=== PATIENT | male | born 1990 | race African-American/Black ===

== ENCOUNTER 2017-06-11 11:53 | Emergency (ER) | payer OTHER ==
[~2017-06-11] VITALS: Ht 177.8 cm; Wt 118.2 kg
[~2017-06-11 11:53] MED LIST: DOXYCYCLINE 10100 MG PO; NORVASC 10MG10 MG PO
[2017-06-11 11:57] VITALS: TEMP 97.3
[2017-06-11 12:15] LABS: BASO # 0.1 (0.0-0.2); BASO % 0.6 % (0.0-2.0); EOS # 0.2 (0.0-0.7); EOS % 1.5 % (0-4.0); GRAN # 7.1 (1.4-6.5); GRAN % 70.4 % (42.2-75.2); LYMPH # 2.2 (1.2-3.4); LYMPH % 21.7 % (20.0-51.0); MEAN CORPUSCULAR HGB CONC 30 g/dl (33.0-37.0); MONO # 0.6 (0.1-0.6); MONO % 5.4 % (1.7-9.3); PLATELET COUNT 277 K/mm3 (130-400); WHITE BLOOD COUNT 10.1 K/mm3 (4.8-10.8)
[2017-06-11 12:22] LABS: INR 1.4 (0.8-3.0); PROTHROMBIN TIME 15.8 SECONDS (9.7-12.8)
[2017-06-11 12:23] LABS: ADJUSTED CALCIUM 9.6 mg/dL (8.4-10.2); BILIRUBIN,TOTAL 3.8 mg/dL (0.0-1.0); CALCIUM 9.6 mg/dL (8.4-10.2); CREATININE, serum 1.88 mg/dL (0.66-1.25); TOTAL PROTEIN 7.6 gm/dL (6.4-8.2)
[2017-06-11 12:25] LABS: PARTIAL THROMBOPLASTIN TIME 30.8 SECONDS (26.0-37.0)
[2017-06-11 12:34] LABS: POTASSIUM 2.9 mmol/L (3.4-5.0)
[2017-06-11 12:48] LABS: TROPONIN-I 0.104 ng/mL (0.000-0.034)
[2017-06-11 13:00] LABS: HEMATOCRIT 36.5 % (42.0-52.0); HEMOGLOBIN 11.1 g/dl (13.5-18.0); MEAN CORPUSCULAR HEMOGLOBIN 19 pg (27.0-31.0)
[2017-06-11 13:02] LABS: MEAN CELL VOLUME 62 fl (80.0-100.0)
[2017-06-11 13:03] LABS: RED BLOOD COUNT 5.85 M/mm3 (4.20-5.60)
[2017-06-11 13:26] LABS: ARTERIAL BLD GAS O2 SATURATION 98.9 % (92-100); ARTERIAL BLD GAS TCO2 CT 29.7; ARTERIAL BLOOD GAS HCO3 28.2 meq/L (22-26); ARTERIAL BLOOD GAS PHT 7.36 C (7.35-7.45); ARTERIAL BLOOD GAS pH 7.36 (7.35-7.45); OXYHEMOGLOBIN 96.5 %
[2017-06-11 13:28] LABS: ARTERIAL BLOOD GAS PO2 167.4 mmHg (80-100); ARTERIAL BLOOD GAS PO2T 167.4 (80-100); ATS? YES
[2017-06-11 14:00] VITALS: BP 169/100; PULSE 116
== END 2017-06-11 14:25 | disposition short-term general hospital (02) ==
LOC: COL.ER 11:53
PROVIDERS: Emergency Medicine
DX: I62.9 Nontraumatic intracranial hemorrhage, unspecified (principal); I10 Essential (primary) hypertension
CPT/HCPCS: J0330; J2060; J2250; J2765; J3010; J3480; J7030